=== PATIENT | female | born 1955 | race Caucasian/White ===

== ENCOUNTER 2018-02-08 07:59 | Emergency (ER) | payer OTHER ==
[~2018-02-08] VITALS: Ht 165.1 cm; Wt 101.0 kg
[~2018-02-08 07:59] MED LIST: TRAM50TA2 PO
[2018-02-08 08:02] VITALS: BP 150/95
[2018-02-09] MEDS ORDERED: HYDR-569 PO (08:37)
== END 2018-02-08 09:37 | disposition home or self-care (01) ==
LOC: ER 08:00
DX: S82.442A Displaced spiral fracture of shaft of left fibula, initial encounter for closed fracture (principal); X50.1XXA Overexertion from prolonged static or awkward postures, initial encounter; Y93.89 Activity, other specified; Y92.89 Other specified places as the place of occurrence of the external cause; Y99.8 Other external cause status
CPT/HCPCS: 73610; 99284

== ENCOUNTER 2018-02-18 10:22 | Outpatient (CLI) | payer OTHER ==
[~2018-02-18 10:22] MED LIST changes: +HYDR-569 PO
[2018-02-18 10:38] VITALS: BP 133/92
== END 2018-02-18 11:36 | disposition home or self-care (01) ==
LOC: ORTHO 10:22
PROVIDERS: ATTEND Nurse Practitioner Family
DX: Z01.818 Encounter for other preprocedural examination (principal); S82.831A Other fracture of upper and lower end of right fibula, initial encounter for closed fracture; E03.9 Hypothyroidism, unspecified; F32.9 Major depressive disorder, single episode, unspecified; G62.9 Polyneuropathy, unspecified; I10 Essential (primary) hypertension; K21.9 Gastro-esophageal reflux disease without esophagitis; M85.80 Other specified disorders of bone density and structure, unspecified site; X58.XXXA Exposure to other specified factors, initial encounter; Y93.89 Activity, other specified; Y92.89 Other specified places as the place of occurrence of the external cause; Y99.8 Other external cause status
CPT/HCPCS: 99215

== ENCOUNTER 2018-03-04 13:35 | Outpatient (CLI) | payer OTHER ==
[~2018-03-04 13:35] MED LIST changes: +ASPI-611 PO; +CARV6.253 PO; +CITA10TA9 PO; -HYDR-569 PO; +LEVO75TA7 PO; +PANT40TA4 PO; -TRAM50TA2 PO; +VALS160T29 PO
[2018-03-04 13:53] VITALS: BP 138/96
== END 2018-03-04 14:20 | disposition home or self-care (01) ==
LOC: ORTHO 13:35
PROVIDERS: ATTEND Nurse Practitioner Family
DX: S82.832D Other fracture of upper and lower end of left fibula, subsequent encounter for closed fracture with routine healing (principal); E03.9 Hypothyroidism, unspecified; F32.9 Major depressive disorder, single episode, unspecified; I10 Essential (primary) hypertension; K21.9 Gastro-esophageal reflux disease without esophagitis; X58.XXXD Exposure to other specified factors, subsequent encounter
CPT/HCPCS: 99213; A6449

== ENCOUNTER 2018-03-10 11:33 | Outpatient (CLI) | payer OTHER ==
[2018-03-10 11:58] VITALS: BP 121/79
== END 2018-03-10 12:20 | disposition home or self-care (01) ==
LOC: ORTHO 11:33
PROVIDERS: ATTEND Nurse Practitioner Family
DX: S82.832D Other fracture of upper and lower end of left fibula, subsequent encounter for closed fracture with routine healing (principal); E03.9 Hypothyroidism, unspecified; F32.9 Major depressive disorder, single episode, unspecified; I10 Essential (primary) hypertension; K21.9 Gastro-esophageal reflux disease without esophagitis; X58.XXXD Exposure to other specified factors, subsequent encounter
CPT/HCPCS: 99214; A6449

== ENCOUNTER 2018-03-19 09:36 | Outpatient (CLI) | payer OTHER | END 2018-03-19 23:59 | disposition home or self-care (01) | LOC: RAD 09:36 | PROVIDERS: ATTEND Physician Assistant | DX: R26.89 Other abnormalities of gait and mobility (principal); I10 Essential (primary) hypertension; Z87.891 Personal history of nicotine dependence | CPT/HCPCS: 70551 ==

== ENCOUNTER → 2018-04-16 | Outpatient (CLI) | payer OTHER | LOC: ORTHO 11:53 | PROVIDERS: ATTEND Nurse Practitioner Family | DX: S82.832D Other fracture of upper and lower end of left fibula, subsequent encounter for closed fracture with routine healing (principal); M77.32 Calcaneal spur, left foot; K21.9 Gastro-esophageal reflux disease without esophagitis; I10 Essential (primary) hypertension; E03.9 Hypothyroidism, unspecified; F32.9 Major depressive disorder, single episode, unspecified; Z87.891 Personal history of nicotine dependence; X58.XXXD Exposure to other specified factors, subsequent encounter | CPT/HCPCS: 73600; 99213 ==

== ENCOUNTER 2018-05-20 13:34 | Outpatient (CLI) | payer OTHER | END 2018-05-20 13:45 | disposition home or self-care (01) | LOC: ORTHO 13:34 | PROVIDERS: ATTEND Nurse Practitioner Family | DX: S82.832D Other fracture of upper and lower end of left fibula, subsequent encounter for closed fracture with routine healing (principal); M79.89 Other specified soft tissue disorders; M25.472 Effusion, left ankle; M85.872 Other specified disorders of bone density and structure, left ankle and foot; I10 Essential (primary) hypertension; K21.9 Gastro-esophageal reflux disease without esophagitis; E03.9 Hypothyroidism, unspecified; F32.9 Major depressive disorder, single episode, unspecified; Z87.891 Personal history of nicotine dependence; Z72.89 Other problems related to lifestyle; X58.XXXD Exposure to other specified factors, subsequent encounter | CPT/HCPCS: 73600; 99213 ==

== ENCOUNTER → 2018-06-04 | Outpatient (CLI) | payer OTHER ==
[~2018-06-04] MED LIST changes: -VALS160T29 PO; +VALS160T30 PO
[2018-06-04 11:42] LABS: BASOPHILS % (AUTO) 0.6 % (0-1); EOSINOPHILS # (AUTO) 0.2 X10'3 (0-0.9); EOSINOPHILS % (AUTO) 3.8 % (0-6); HEMOGLOBIN 15.2 g/dl (12.0-16.0); LYMPHOCYTES # (AUTO) 1.6 X10'3 (1.1-4.8); LYMPHOCYTES % (AUTO) 26.9 % (21-51); MEAN CORPUSCULAR HEMOGLOBIN 28.9 PG (27.0-31.0); MEAN CORPUSCULAR HGB CONC 33.8 % (33.0-36.5); MEAN CORPUSCULAR VOLUME 85.5 FL (78-98); MEAN PLATELET VOLUME 9.2 FL (7.4-10.4); MONOCYTES # (AUTO) 0.4 X10'3 (0-0.9); MONOCYTES % (AUTO) 6.1 % (2-12); NEUTROPHILS # (AUTO) 3.9 X10'3 (1.8-7.7); NEUTROPHILS % (AUTO) 62.6 % (42-75); PLATELET COUNT 250 X10'3 (140-440); RED BLOOD COUNT 5.27 X10'6 (4.20-5.60); RED CELL DISTRIBUTION WIDTH 12.1 % (11.5-14.5); WHITE BLOOD COUNT 6.1 X10'3 (4.5-11.0)
[2018-06-04 12:03] LABS: ALANINE AMINOTRANSFERASE 33 U/L (12-78); ALBUMIN 3.7 G/DL (3.4-5.0); ALBUMIN/GLOBULIN RATIO 1.2 (1.1-1.5); ALKALINE PHOSPHATASE 118 IU/L (46-116); ANION GAP 5 (8-16); ASPARTATE AMINO TRANSFERASE 16 U/L (10-37); BILIRUBIN,TOTAL 0.7 MG/DL (0.1-1.0); BLOOD UREA NITROGEN 12 MG/DL (7-18); BUN/CREATININE RATIO 12.5 (6.6-38.0); CALCIUM 8.8 MG/DL (8.5-10.1); CHLORIDE 105 MMOL/L (99-107); CHOL/HDL RATIO 4.4 (0.00-4.99); CHOLESTEROL 257 MG/DL (0-200); CREATININE 0.96 MG/DL (0.40-0.90); GLUCOSE 88 MG/DL (70-104); HDL CHOLESTEROL 58 MG/DL (35-60); LDL CHOLESTEROL 167 MG/DL (50-100); POTASSIUM 3.9 MMOL/L (3.5-5.1); SODIUM 138 MMOL/L (135-145); TOTAL CARBON DIOXIDE 28.3 MMOL/L (24-32); TOTAL PROTEIN 6.9 G/DL (6.4-8.2); TRIGLYCERIDES 144 MG/DL (20-135); eGFR 59 ML/MIN
[2018-06-04 15:26] LABS: C-REACTIVE PROTEIN 0.51 MG/DL (0.0-0.5)
== END | disposition home or self-care (01) ==
LOC: LAB 10:34
PROVIDERS: ATTEND Physician Assistant
DX: Z00.01 Encounter for general adult medical examination with abnormal findings (principal); Z13.820 Encounter for screening for osteoporosis; R26.89 Other abnormalities of gait and mobility; I10 Essential (primary) hypertension; E55.9 Vitamin D deficiency, unspecified; Z79.82 Long term (current) use of aspirin
CPT/HCPCS: 36415; 80053; 80061; 82043; 82306; 82570; 84443; 85025; 85651; 86140

== ENCOUNTER 2018-11-18 13:14 | Outpatient (CLI) | payer OTHER | END 2018-11-18 23:59 | disposition home or self-care (01) | LOC: CARD DIAG 13:14 | PROVIDERS: ATTEND Internal Medicine Cardiovascular Disease | DX: I10 Essential (primary) hypertension (principal); Z79.82 Long term (current) use of aspirin; Z87.891 Personal history of nicotine dependence | CPT/HCPCS: 93306 ==

== ENCOUNTER 2019-08-10 08:54 | Outpatient (CLI) | payer OTHER ==
[2019-08-10 11:55] LABS: BASOPHILS # (AUTO) 0.1 X10'3 (0-0.2); BASOPHILS % (AUTO) 0.9 % (0-1); EOSINOPHILS # (AUTO) 0.3 X10'3 (0-0.9); EOSINOPHILS % (AUTO) 4.9 % (0-6); HEMATOCRIT 44.7 % (35.0-45.0); HEMOGLOBIN 15.5 g/dl (12.0-16.0); LYMPHOCYTES # (AUTO) 1.8 X10'3 (1.1-4.8); LYMPHOCYTES % (AUTO) 27.2 % (21-51); MEAN CORPUSCULAR HGB CONC 34.8 g/dL (33.0-36.5); MEAN CORPUSCULAR VOLUME 86.2 FL (78-98); MEAN PLATELET VOLUME 8.9 FL (7.4-10.4); MONOCYTES # (AUTO) 0.5 X10'3 (0-0.9); PLATELET COUNT 291 X10'3 (140-440); RED BLOOD COUNT 5.19 X10'6 (4.20-5.60); WHITE BLOOD COUNT 6.8 X10'3 (4.5-11.0)
[2019-08-10 11:56] LABS: CLARITY,URINE SLIGHTLY CLOUDY (Clear); COLOR,URINE YELLOW (Yellow); GLUCOSE, URINE NEGATIVE (Neg); KETONES,URINE NEGATIVE (Neg); LEUKOCYTE ESTERASE ,URINE NEGATIVE (Neg); NITRITES, URINE NEGATIVE (Neg); OCCULT BLOOD,URINE NEGATIVE (Neg); PH,URINE 5.5 (4.8-8.0); PROTEIN,URINE NEGATIVE (Neg); UROBILINOGEN,URINE 0.2 E.U/dL (0.2-1.0)
[2019-08-10 12:04] LABS: UA COLLECTION TYPE CLN CATCH MIDSTREAM
[2019-08-10 12:05] LABS: BACTERIA,URINE FEW /HPF (Neg); RBC,URINE 0-2 /HPF (0-2); SQUAMOUS EPITHELIAL CELL,UR MODERATE /LPF (FEW); WBC,URINE 0-4 /HPF (0-4)
[2019-08-10 12:06] LABS: HYALINE CASTS 0-3 /LPF (NEGATIVE)
[2019-08-10 12:14] LABS: YEAST FEW /HPF (NEGATIVE)
[2019-08-10 12:25] LABS: ANION GAP 10 (8-16); BILIRUBIN,TOTAL 0.7 MG/DL (0.1-1.0); BLOOD UREA NITROGEN 12 MG/DL (7-18); BUN/CREATININE RATIO 16.4 (6.6-38.0); CALCIUM 9.2 MG/DL (8.5-10.1); CHLORIDE 106 MMOL/L (99-107); CREATININE 0.73 MG/DL (0.40-0.90); GLUCOSE 89 MG/DL (70-104); POTASSIUM 4.1 MMOL/L (3.5-5.1); SODIUM 143 MMOL/L (135-145); TOTAL CARBON DIOXIDE 27.4 MMOL/L (24-32); TOTAL PROTEIN 7.7 G/DL (6.4-8.2); eGFR 80 ML/MIN
[2019-08-10 12:26] LABS: ALANINE AMINOTRANSFERASE 36 U/L (12-78); ALBUMIN 3.8 G/DL (3.4-5.0); ALKALINE PHOSPHATASE 130 IU/L (46-116); ASPARTATE AMINO TRANSFERASE 16 U/L (10-37); CHOL/HDL RATIO 3.9 (0.00-4.99); CHOLESTEROL 252 MG/DL (0-200); HDL CHOLESTEROL 65 MG/DL (35-60); LDL CHOLESTEROL 167 MG/DL (50-100); TRIGLYCERIDES 91 MG/DL (20-135)
== END 2019-08-10 23:59 | disposition home or self-care (01) ==
LOC: LAB 08:54
PROVIDERS: ATTEND Family Medicine
DX: E03.9 Hypothyroidism, unspecified (principal); I10 Essential (primary) hypertension; M19.90 Unspecified osteoarthritis, unspecified site; Z76.89 Persons encountering health services in other specified circumstances
CPT/HCPCS: 36415; 80053; 80061; 81001; 84439; 84443; 85025; 87088

== ENCOUNTER 2019-09-20 06:59 | Day surgery (SDC) | payer OTHER ==
[~2019-09-20] VITALS: Ht 165.1 cm; Wt 95.5 kg
[2019-09-20 07:10] VITALS: BP 127/105
[2019-09-20] MEDS ORDERED: fentaNYL/PF 50MCG/1 ML 2ML syringe ONE (07:21)
[2019-09-20] MEDS ORDERED: MIDAZolam 5mg/5ml vial ONE (07:21)
[2019-09-20 09:20] VITALS: BP 108/73
[2019-09-20 09:30] VITALS: BP 114/70
[2019-09-20 09:40] VITALS: BP 111/68
[2019-09-20 09:50] VITALS: BP 121/73
== END 2019-09-20 10:05 | disposition home or self-care (01) ==
LOC: GI LAB 06:59
PROVIDERS: ATTEND Internal Medicine Gastroenterology
DX: Z12.11 Encounter for screening for malignant neoplasm of colon (principal); D12.3 Benign neoplasm of transverse colon; K62.1 Rectal polyp; K63.89 Other specified diseases of intestine; K57.30 Diverticulosis of large intestine without perforation or abscess without bleeding; K64.8 Other hemorrhoids
CPT/HCPCS: 45380; 45385; 99152; 99153; C1773; J2250; J3010; J7040; A4620

== ENCOUNTER 2019-10-07 11:08 | Emergency (ER) | payer OTHER ==
[~2019-10-07] VITALS: Ht 165.1 cm; Wt 100.0 kg
[2019-10-07 11:52] LABS: CLARITY,URINE SLIGHTLY CLOUDY (Clear); COLOR,URINE YELLOW (Yellow); GLUCOSE, URINE NEGATIVE (Neg); KETONES,URINE NEGATIVE (Neg); LEUKOCYTE ESTERASE ,URINE NEGATIVE (Neg); NITRITES, URINE NEGATIVE (Neg); OCCULT BLOOD,URINE NEGATIVE (Neg); PH,URINE 5.5 (4.8-8.0); PROTEIN,URINE NEGATIVE (Neg); UA COLLECTION TYPE CLN CATCH MIDSTREAM
[2019-10-07 11:55] LABS: BASOPHILS % (AUTO) 0.7 % (0-1); EOSINOPHILS # (AUTO) 0.1 X10'3 (0-0.9); EOSINOPHILS % (AUTO) 2.2 % (0-6); HEMATOCRIT 45.4 % (35.0-45.0); HEMOGLOBIN 15.5 g/dl (12.0-16.0); LYMPHOCYTES # (AUTO) 1.2 X10'3 (1.1-4.8); LYMPHOCYTES % (AUTO) 19.4 % (21-51); MEAN CORPUSCULAR HEMOGLOBIN 29.8 PG (27.0-31.0); MEAN CORPUSCULAR HGB CONC 34.2 g/dL (33.0-36.5); MEAN CORPUSCULAR VOLUME 87.3 FL (78-98); MEAN PLATELET VOLUME 8.9 FL (7.4-10.4); MONOCYTES # (AUTO) 0.6 X10'3 (0-0.9); NEUTROPHILS # (AUTO) 4.4 X10'3 (1.8-7.7); NEUTROPHILS % (AUTO) 68.7 % (42-75); PLATELET COUNT 257 X10'3 (140-440); RED CELL DISTRIBUTION WIDTH 13.4 % (11.5-14.5); WHITE BLOOD COUNT 6.3 X10'3 (4.5-11.0)
[2019-10-07 11:57] LABS: MUCUS STRANDS MANY /LPF (Neg); SQUAMOUS EPITHELIAL CELL,UR MANY /LPF (FEW)
[2019-10-07 11:58] LABS: BACTERIA,URINE 1+ /HPF (Neg)
[2019-10-07 11:59] LABS: RBC,URINE 0-2 /HPF (0-2); WBC,URINE 0-4 /HPF (0-4)
[2019-10-07 12:12] LABS: ALANINE AMINOTRANSFERASE 432 U/L (12-78); ALBUMIN 3.7 G/DL (3.4-5.0); ALKALINE PHOSPHATASE 264 IU/L (46-116); ANION GAP 9 (8-16); ASPARTATE AMINO TRANSFERASE 447 U/L (10-37); BILIRUBIN,TOTAL 1.4 MG/DL (0.1-1.0); BLOOD UREA NITROGEN 11 MG/DL (7-18); BUN/CREATININE RATIO 13.6 (6.6-38.0); CALCIUM 9.2 MG/DL (8.5-10.1); CHLORIDE 107 MMOL/L (99-107); CREATININE 0.81 MG/DL (0.40-0.90); GLUCOSE 109 MG/DL (70-104); LIPASE 92 U/L (73-393); POTASSIUM 4.2 MMOL/L (3.5-5.1); SODIUM 140 MMOL/L (135-145); TOTAL CARBON DIOXIDE 24.1 MMOL/L (24-32); TOTAL PROTEIN 7.3 G/DL (6.4-8.2); eGFR 71 ML/MIN
[2019-10-07 13:57] VITALS: BP 130/83
== END 2019-10-07 14:42 | disposition home or self-care (01) ==
LOC: ER 11:09
DX: K80.20 Calculus of gallbladder without cholecystitis without obstruction (principal); I10 Essential (primary) hypertension; K21.9 Gastro-esophageal reflux disease without esophagitis; E03.9 Hypothyroidism, unspecified; M19.90 Unspecified osteoarthritis, unspecified site; F32.9 Major depressive disorder, single episode, unspecified; Z98.890 Other specified postprocedural states; Z79.82 Long term (current) use of aspirin; Z79.899 Other long term (current) drug therapy
CPT/HCPCS: 36415; 76700; 80053; 81001; 83690; 84484; 85025; 93005; 99284

== ENCOUNTER 2020-01-17 05:31 | Observation (INO) | payer OTHER ==
[2020-01-13 13:36] LABS: BASOPHILS # (AUTO) 0.1 X10'3 (0-0.2); BASOPHILS % (AUTO) 0.8 % (0-1); EOSINOPHILS # (AUTO) 0.4 X10'3 (0-0.9); EOSINOPHILS % (AUTO) 5.1 % (0-6); LYMPHOCYTES # (AUTO) 1.8 X10'3 (1.1-4.8); LYMPHOCYTES % (AUTO) 24.7 % (21-51); MEAN CORPUSCULAR HGB CONC 34.4 g/dL (33.0-36.5); MEAN CORPUSCULAR VOLUME 84.3 FL (78-98); MEAN PLATELET VOLUME 7.7 FL (7.4-10.4); MONOCYTES # (AUTO) 0.7 X10'3 (0-0.9); MONOCYTES % (AUTO) 9.1 % (2-12); NEUTROPHILS # (AUTO) 4.5 X10'3 (1.8-7.7); NEUTROPHILS % (AUTO) 60.3 % (42-75); PRE OP HEMATOCRIT 44.5 % (35.0-45.0); PRE OP HEMOGLOBIN 15.3 g/dL (12.0-16.0); PRE OP PLATELET COUNT 323 X10'3 (140-440); RED BLOOD COUNT 5.28 X10'6 (4.20-5.60); RED CELL DISTRIBUTION WIDTH 12.7 % (11.5-14.5)
[2020-01-13 13:52] LABS: ALBUMIN 3.8 G/DL (3.4-5.0); ALBUMIN/GLOBULIN RATIO 1.1 (1.1-1.5); ALKALINE PHOSPHATASE 142 IU/L (46-116); BLOOD UREA NITROGEN 15 MG/DL (7-18); BUN/CREATININE RATIO 20.5 (6.6-38.0); CALCIUM 9.1 MG/DL (8.5-10.1); CHLORIDE 105 MMOL/L (99-107); CREATININE 0.73 MG/DL (0.40-0.90); PRE OP ALT 53 U/L (30-65); PRE OP ANION GAP 8 (8-16); PRE OP AST 22 U/L (10-37); PRE OP BILIRUB, TOTAL 0.7 MG/DL (0.0-1.0); PRE OP GLUCOSE 82 MG/DL (70-104); PRE OP SODIUM 141 MMOL/L (135-145); TOTAL CARBON DIOXIDE 28.1 MMOL/L (24-32); TOTAL PROTEIN 7.4 G/DL (6.4-8.2); eGFR 80 ML/MIN
[~2020-01-17] VITALS: Ht 165.1 cm; Wt 99.0 kg
[2020-01-17] VITALS (21 sets, daily range): BP systolic 112–160; BP diastolic 55–101
[~2020-01-17 05:31] MED LIST changes: +DOCUMENT DATE & TIME OF BETA-BLOCKER PO ONE; +INDOCYANINE GREEN 25 MG/10 ML VIAL IV ONE; -VALS160T30 PO; +cefazolin/dext.iso 2gm/100ml 100 ML IV ONE; +famotidine 20mg tablet PO ONE
[2020-01-17] MEDS: ringers solution, lacted 1,000 ML IV SCH ×2 (06:06→11:34)
[2020-01-17] MEDS ORDERED: BUPIVACAINE liposomal/PF 13.3 MG/ML vial IM ONE (06:55)
[2020-01-17] MEDS ORDERED: ROPIVAcaine 0.5% (5mg/ml) 30ml vial ONE (06:55)
[2020-01-17] MEDS ORDERED: ringers solution, lacted 1,000 ML IV SCH (07:17)
[2020-01-17] MEDS ORDERED: labetalol 20mg/4ml (5mg/ml) syringe IV PRN (07:20)
[2020-01-17] MEDS ORDERED: morphine 4 MG/ML inj SYRINge IV PRN (07:20)
[2020-01-17] MEDS ORDERED: hydrALAZINE 20mg/ml inj. IV PRN (07:20)
[2020-01-17] MEDS ORDERED: morphine 2 MG/ML inj. syringe IV PRN (07:20)
[2020-01-17] MEDS ORDERED: fentaNYL/PF 50MCG/1 ML 2ML syringe IV PRN ×2 (07:20)
[2020-01-17] MEDS ORDERED: ondansetron/PF 4mg/2ml inj IV PRN ×2 (07:20→09:30)
[2020-01-17] MEDS ORDERED: midazolam 2 mg/2 ml injection ONE (07:25)
[2020-01-17] MEDS ORDERED: fentaNYL /PF 50mcg/ml 5ml ampule ONE (07:26)
[2020-01-17] MEDS ORDERED: neostigmine methylsulfate 1 MG/ML 10ml vial ONE (07:28)
[2020-01-17] MEDS ORDERED: ondansetron/PF 4mg/2ml inj ONE (07:28)
[2020-01-17] MEDS ORDERED: LIDOcaine 2% (20mg/ml) 5ml vial ONE (07:28)
[2020-01-17] MEDS ORDERED: glycopyrrolate 0.2mg/ml inj ONE (07:28)
[2020-01-17] MEDS ORDERED: propofol inj 20 ML IV ONE (07:28)
[2020-01-17] MEDS ORDERED: rocuronium 10mg/ml inj IV ONE (07:28)
[2020-01-17] MEDS ORDERED: dexamethasone sod phosphate 4mg/ml inj. ONE (07:28)
[2020-01-17] MEDS ORDERED: sevoflurane 250ml liquid IH ONE (07:39)
[2020-01-17] MEDS ORDERED: labetalol 20mg/4ml (5mg/ml) syringe IV ONE (07:39)
[2020-01-17] MEDS ORDERED: acetaminophen 1,000mg/100ml IV 100 ML IV ONE (07:53)
--- NOTE | 2020-01-17 09:29 | NUR ---
Received from OR via BED, accompanied by Anesthesiologist DR MUSA and report given by Anesthesiolgist. AWAKENING, VSS. DENIES PAIN OR NAUSEA. RUQ ABD ISLAND DSG CDI. ABD SOFT/NONDISTENDED. IV PATNET LEFT FA #20 LR @ 100MLS/HR. F/C INPLACE WITH CLEAR YELLOW URINE RETURN 50 MLS PRESENT. SCD'S BILAT APPLIED.
[2020-01-17] MEDS ORDERED: Potassium Cl inj 20 MEQ in ringers solution, lacted 1,000 ML IV SCH (09:30)
[2020-01-17] MEDS ORDERED: oxyCODONE/APAP 10/325mg tablet PO PRN ×2 (09:30)
--- NOTE | 2020-01-17 10:40 | NUR ---
FC DC'D WITH BALLON DEFLATED AND TIP INTACT
--- NOTE | 2020-01-17 10:41 | NUR ---
Received patient report from Tierra FERRIS in Recovery she will pull patients hardin before coming to the floor. Will assume patient care when she comes to the floor.
--- NOTE | 2020-01-17 10:49 | NUR ---
AWAKE. VSS. DENIES PAIN OR NAUSEA. ABD SOFT/NONDISTENDED. ABD DSG CDI. IV LEFT FA #20 PATENT[address] SCD'S INPLACE. REPORT GIVEN TO AFIA FERRIS WITH ALL QUESTIONS ANSWERED. [facility] AND CLOTHES PRESENT. AFIA IN TO RECEIVE PT, HOOKED UP TO VS MACHINE, AND O2 3L PER NC APPLIED. Addendum: 01/17/20 at 1113 by Tierra Mar RN Amended: Links added.
[2020-01-17] MEDS: Potassium Cl inj 20 MEQ in ringers solution, lacted 1,000 ML IV SCH ×3 (11:33→18:32)
[2020-01-17] MEDS ORDERED: traMADol 50MG tablet PO PRN (13:00)
[2020-01-17] MEDS: traMADol 50MG tablet PO PRN ×3 (13:42→19:58)
--- NOTE | 2020-01-17 18:30 | NUR ---
Patient in room [facility]. I have received report from BARRINGTON Cedillo and had the opportunity to ask questions and assume patient care. Addendum: 01/17/20 at 1927 by Walker Trevino RN Amended: Links added.
--- NOTE | 2020-01-17 18:31 | NUR ---
Problems reprioritized. Patient report given, questions answered & plan of care reviewed with Yenni FERRIS.
[2020-01-17] MEDS: carvedilol 6.25mg tablet PO SCH (19:55)
[2020-01-18] VITALS: BP 115/68
[2020-01-18 05:03] LABS: BASOPHILS % (AUTO) 0.1 % (0-1); EOSINOPHILS % (AUTO) 0 % (0-6); HEMATOCRIT 39.3 % (35.0-45.0); HEMOGLOBIN 13.5 g/dl (12.0-16.0); LYMPHOCYTES # (AUTO) 0.7 X10'3 (1.1-4.8); MEAN CORPUSCULAR HEMOGLOBIN 28.9 PG (27.0-31.0); MEAN CORPUSCULAR HGB CONC 34.5 g/dL (33.0-36.5); MEAN CORPUSCULAR VOLUME 83.8 FL (78-98); MEAN PLATELET VOLUME 8.6 FL (7.4-10.4); MONOCYTES # (AUTO) 0.8 X10'3 (0-0.9); MONOCYTES % (AUTO) 6.4 % (2-12); NEUTROPHILS # (AUTO) 10.8 X10'3 (1.8-7.7); NEUTROPHILS % (AUTO) 87.5 % (42-75); PLATELET COUNT 257 X10'3 (140-440); RED BLOOD COUNT 4.69 X10'6 (4.20-5.60); RED CELL DISTRIBUTION WIDTH 12.4 % (11.5-14.5); WHITE BLOOD COUNT 12.3 X10'3 (4.5-11.0)
[2020-01-18 05:27] LABS: ALANINE AMINOTRANSFERASE 48 U/L (12-78); ALBUMIN/GLOBULIN RATIO 0.9 (1.1-1.5); ALKALINE PHOSPHATASE 110 IU/L (46-116); ANION GAP 9 (8-16); ASPARTATE AMINO TRANSFERASE 28 U/L (10-37); BLOOD UREA NITROGEN 9 MG/DL (7-18); BUN/CREATININE RATIO 15.5 (6.6-38.0); CALCIUM 8.9 MG/DL (8.5-10.1); CHLORIDE 109 MMOL/L (99-107); CREATININE 0.58 MG/DL (0.40-0.90); GLUCOSE 126 MG/DL (70-104); SODIUM 142 MMOL/L (135-145); TOTAL CARBON DIOXIDE 24.4 MMOL/L (24-32); TOTAL PROTEIN 6.3 G/DL (6.4-8.2); eGFR > 90 ML/MIN
--- NOTE | 2020-01-18 06:29 | NUR ---
Patient in room [facility]. I have received report from Yenni FERRIS and had the opportunity to ask questions and assume patient care.
--- NOTE | 2020-01-18 06:52 | NUR ---
Problems reprioritized. Patient report given, questions answered & plan of care reviewed with BARRINGTON Cedillo. Addendum: 01/18/20 at 0653 by Walker Trevino RN Amended: Links added.
[2020-01-18] MEDS: carvedilol 6.25mg tablet PO SCH (06:56)
[2020-01-18 07:00] VITALS: BP 137/63
[2020-01-18] MEDS ORDERED: levoTHYROXINE 75mcg tablet PO SCH (07:30)
[2020-01-18] MEDS ORDERED: pantoprazole 40mg Tablet.DR PO SCH (07:30)
[2020-01-18] MEDS ORDERED: CITALOpram 10mg tablet PO SCH (08:00)
[2020-01-18] MEDS: traMADol 50MG tablet PO PRN ×2 (08:12→12:31)
[2020-01-18 11:00] VITALS: BP 129/69
[2020-01-18] MEDS: Potassium Cl inj 20 MEQ in ringers solution, lacted 1,000 ML IV SCH (11:30)
[2020-01-18] MEDS ORDERED: TRAM50TA2 PO (12:09)
--- NOTE | 2020-01-18 12:30 | NUR ---
Discharge instructions reviewed with patient and patient verbalized understanding. Patient IV dc'd cannula intact. Patient states she has all her belongings. Patient taken to lobby to wait for her ride to arrive due to we have a no visitor policy at this time.
== END 2020-01-18 12:35 | disposition home or self-care (01) ==
LOC: PAS 05:31 → SUR 3N 09:30
PROVIDERS: ADMIT Surgery; ATTEND Surgery
DX: K80.66 Calculus of gallbladder and bile duct with acute and chronic cholecystitis without obstruction (principal)
CPT/HCPCS: 36415; 47600; 80053; 82948; 85025; C9290; G0378; J0131; J1100; J2001; J2250; J2405; J2704; J2710; J3010; J3480; J7120; A4215; A4618; A6258; A7000; J2795; J3490

== ENCOUNTER 2021-07-06 09:39 | Emergency (ER) | payer BC, OTHER ==
[~2021-07-06] VITALS: Ht 158.2 cm; Wt 200.0 kg
[~2021-07-06 09:39] MED LIST changes: -DOCUMENT DATE & TIME OF BETA-BLOCKER PO ONE; -INDOCYANINE GREEN 25 MG/10 ML VIAL IV ONE; -PANT40TA4 PO; +PANT40TA54 PO; +TRAM50TA2 PO; -cefazolin/dext.iso 2gm/100ml 100 ML IV ONE; -famotidine 20mg tablet PO ONE
[2021-07-06 10:09] VITALS: BP 127/55
== END 2021-07-06 11:16 | disposition home or self-care (01) ==
LOC: ER 09:40
DX: B34.9 Viral infection, unspecified (principal); Z20.822 Contact with and (suspected) exposure to COVID-19; I10 Essential (primary) hypertension; K21.9 Gastro-esophageal reflux disease without esophagitis; E03.9 Hypothyroidism, unspecified; Z87.81 Personal history of (healed) traumatic fracture; Z79.82 Long term (current) use of aspirin; Z79.899 Other long term (current) drug therapy; Z72.89 Other problems related to lifestyle; Z98.890 Other specified postprocedural states
CPT/HCPCS: 87635; 99283; C9803

== ENCOUNTER 2021-12-27 07:50 | Outpatient (CLI) | payer BC ==
[~2021-12-27 07:50] MED LIST changes: -CITA10TA9 PO; +CITA10TA93 PO
[2021-12-27 08:33] LABS: BASOPHILS % (AUTO) 0.6 % (0-1); EOSINOPHILS # (AUTO) 0.2 X10'3 (0-0.9); EOSINOPHILS % (AUTO) 3.4 % (0-6); HEMATOCRIT 44.4 % (35.0-45.0); HEMOGLOBIN 15.2 g/dl (12.0-16.0); LYMPHOCYTES # (AUTO) 1.3 X10'3 (1.1-4.8); LYMPHOCYTES % (AUTO) 20.9 % (21-51); MEAN CORPUSCULAR HEMOGLOBIN 29.7 PG (27.0-31.0); MEAN CORPUSCULAR HGB CONC 34.1 g/dL (33.0-36.5); MEAN CORPUSCULAR VOLUME 87.2 FL (78-98); MEAN PLATELET VOLUME 8.7 FL (7.4-10.4); MONOCYTES # (AUTO) 0.5 X10'3 (0-0.9); MONOCYTES % (AUTO) 7.8 % (2-12); NEUTROPHILS # (AUTO) 4.2 X10'3 (1.8-7.7); NEUTROPHILS % (AUTO) 67.3 % (42-75); PLATELET COUNT 261 X10'3 (140-440); WHITE BLOOD COUNT 6.3 X10'3 (4.5-11.0)
[2021-12-27 10:12] LABS: ALANINE AMINOTRANSFERASE 38 U/L (12-78); ALBUMIN 3.8 G/DL (3.4-5.0); ALBUMIN/GLOBULIN RATIO 1.1 (1.1-1.5); ALKALINE PHOSPHATASE 140 IU/L (46-116); ASPARTATE AMINO TRANSFERASE 17 U/L (10-37); BILIRUBIN,TOTAL 0.7 MG/DL (0.1-1.0); BLOOD UREA NITROGEN 14 MG/DL (7-18); BUN/CREATININE RATIO 18.4 (6.6-38.0); CALCIUM 9.1 MG/DL (8.5-10.1); CHLORIDE 108 MMOL/L (99-107); CHOL/HDL RATIO 3.7 (0.00-4.99); CHOLESTEROL 253 MG/DL (0-200); CREATININE 0.76 MG/DL (0.40-0.90); GLUCOSE 92 MG/DL (70-104); HDL CHOLESTEROL 68 MG/DL (35-60); LDL CHOLESTEROL 171 MG/DL (50-100); TOTAL PROTEIN 7.2 G/DL (6.4-8.2); TRIGLYCERIDES 82 MG/DL (20-135); eGFR 76 ML/MIN
[2021-12-27 10:17] LABS: ANION GAP 8 (8-16); POTASSIUM 4.3 MMOL/L (3.5-5.1); SODIUM 141 MMOL/L (135-145); TOTAL CARBON DIOXIDE 25.5 MMOL/L (24-32)
[2021-12-28 15:46] LABS: ESTRADIOL 31.4 pg/mL (.); PROGESTERONE 0.1 ng/mL (.)
[2021-12-31 11:08] LABS: TESTOSTERONE, FREE, DIRECT 2.8 pg/mL (0.0-4.2)
== END 2021-12-27 23:59 | disposition home or self-care (01) ==
LOC: LAB 07:50
PROVIDERS: ATTEND Family Medicine
DX: Z00.01 Encounter for general adult medical examination with abnormal findings (principal); E03.9 Hypothyroidism, unspecified; E55.9 Vitamin D deficiency, unspecified
CPT/HCPCS: 36415; 80053; 80061; 82306; 82670; 84144; 84402; 84403; 84439; 84443; 85025

== ENCOUNTER 2025-09-11 08:08 | Emergency (ER) | payer BC ==
[~2025-09-11] VITALS: Ht 162.6 cm; Wt 95.4 kg
[~2025-09-11 08:08] MED LIST changes: -ASPI-611 PO; -LEVO75TA7 PO; -TRAM50TA2 PO
[2025-09-11 08:09] VITALS: TEMP 98.7
--- NOTE | 2025-09-11 08:31 | Physician Documentation ---
History of Present Illness ~ Chief Complaint: Flu Symptoms Stated Complaint: N/V FEVER Time Seen by MD: 08:27 OK to notify your PCP?: Yes Primary Medical Doctor: Srinivasan Hays VIDEOTAPE RECORDING ENGINEER Source: patient Mode of Arrival: POV Exam Limitations: no limitations HPI A 70-year-old pleasant female with past medical history of hypertension presented to the ER with fever, vomiting for the past 3 days. She stated that she was doing apparently normal until Thursday but on Thursday afternoon she felt UTI symptoms of increased frequency and little bit of abdominal discomfort. She reported that she is feeling body aches, leg cramps, generalized weakness from Thursday night. She endorses fever with chills on Thursday but subsided now. She is complaining of nausea with vomiting, bilious in nature, aggravated even with small amount of fluids. She could not able to take sips of water she is feeling better taste. She stated that blood pressures are well within control with carvedilol but it shooted up to 200 she is not able to take carvedilol from Thursday. She denied cough, cold, sore throat, chest pain, shortness of breath, pedal edema, abdominal distention, heartburn, indigestion, dyspepsia, acid r eflux, weakness of limbs, slurring of speech, deviation of angle of mouth, palpitations, seizures. Medication Reconciliation Allergies: Coded Allergies: No Known Allergies (Unverified , 07/06/21) Scheduled Carvedilol (Carvedilol), 1 TAB PO BID, (Reported) Cefpodoxime Proxetil (Cefpodoxime Proxetil), 1 TAB PO Q12H Citalopram Hydrobromide (Citalopram HBr), 2 TAB PO DAILY, (Reported) Pantoprazole Sodium (Pantoprazole Sodium), 1 TAB PO BKF, (Reported) Scheduled PRN ONDANSETRON ODT 4mg tablet (Ondansetron Odt), 1 TAB PO Q6H PRN PRN for nausea/vomiting Past Medical History Past Medical History: Peripheral Neuropathy, Hypertension, GERD, Hypot hyroidism, Arthritis, Extremity Fracture, Osteopenia, Depression Past Surgical History: cholecystectomy, orthopedic surgeries Alcohol Use: Occasionally Drug Use: none Lives with: Spouse Lives In: Home Occupation: employed Review of Systems All Other Systems at this time: Reviewed and Negative ROS Reviewed in full and negative except positive pertinent as in HPI Physical Exam Vital Signs: Temperature: 98.7, Source: Oral, Heart Rate: 52, Respiratory Rate: 16, BP: 204/165, Pulse Oximetry: 98, Weight: 95.400 Oxygen Flow Rate: 0 General Appearance: alert, no apparent distress, ill-appearing, obese Eyes: normal inspection, EOMI, PERRL Ears: auricle normal, canal normal, TMs normal Nose: normal inspection Oropharynx: normal inspection, dry muscous membranes Neck: non-tender, full range of motion, supple, normal inspection, trachea midline Respiratory: lungs clear, normal breath sounds, no respiratory distress Chest: no accessory muscle use, chest non-tender Cardiovascular: normal peripheral pulses, regular rate, rhythm, no edema, no gallop, no JVD, no murmur Gastrointestinal: normal palpation, non-tender, bowels sounds present Rectal: deferred Extremities: normal range of motion, non-tender, normal inspection, no edema, no calf tenderness, no cyanosis Back: normal inspection, no CVA tenderness Skin: normal color, warm/dry Neurologic: oriented x4, 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 (Apresoline Inj.) (09/11/25 08:35) Ondansetron Inj. (Zofran 4mg/2ml Vial) (09/11/25 09:05) Add On Test (09/11/25 09:05) Ceftriaxone 2gm/D5w 50ml Bag (Rocephin 2 (09/11/25 09:50) LA (09/11/25 09:57) Medications Received in ER Medications (Trade) Dose Ordered Sig/Romulo Route PRN Reason Start Time Stop Time Status Last Admin Dose Admin (Apresoline inj.) 10 mg ONCE ONCE IV 09/11/25 08:35 09/11/25 08:40 DC 09/11/25 10:35 10 MG (Zofran 4mg/2ml vial) 4 mg ONCE ONCE IV 09/11/25 09:05 09/11/25 09:10 DC 09/11/25 09:20 4 MG Sodium Chloride 1,000 ml @ 150 mls/hr Q6H40M IV 09/11/25 09:05 09/11/25 09:20 150 MLS/HR Ceftriaxone Sodium/Dextrose 50 ml @ 100 mls/hr ONCE ONCE IV 09/11/25 09:50 09/11/25 10:19 DC 09/11/25 09:57 100 MLS/HR Vital Signs 09/11/25 09/11/25 09/11/25 09/11/25 08:09 08:47 08:49 09:39 Temp 98.7 Pulse 52 88 85 Resp 16 16 16 16 B/P (MAP) 204/165 167/75 (105) 155/95 (115) Pulse Ox 98 95 98 O2 Flow Rate 0 0 0 09/11/25 10:35 Pulse 85 Laboratory Tests Test 09/11/25 08:15 09/11/25 08:33 09/11/25 08:42 09/11/25 10:05 Urine Specimen Description Cln catch midstream Urine Color Yellow Urine Clarity Cloudy Urine pH 6.0 Urine Specific [place] 1.010 Urine Protein 100 H Urine Glucose (UA) Negative Urine Ketones Trace H Urine Occult Blood Moderate H Urine Nitrite Positive H Urine Bilirubin Negative Urine Urobilinogen 1.0 Urine Leukocyte Esterase Moderate H Urine RBC 3-10 Urine WBC Tntc H Urine Squamous Epithelial Cells Few Urine Bacteria 4+ Urine Culture Indicated Indicated Volume Urine Centrifuged 10 ml Urine Comment Influenza Type A Antigen Negative Influenza Type B Antigen Negative SARS-CoV-2 Antigen (Rapid) Negative White Blood Count 11.6 H Red Blood Count 4.94 Hemoglobin 14.9 Hematocrit 43.6 Mean Corpuscular Volume 88.3 Mean Corpuscular Hemoglobin 30.2 Mean Corpuscular Hemoglobin Concent 34.2 Red Cell Distribution Width 13.5 Platelet Count 227 Mean Platelet Volume 8.9 Neutrophils (%) (Auto) 81.6 H Lymphocytes (%) (Auto) 6.5 L Monocytes (%) (Auto) 11.4 Eosinophils (%) (Auto) 0.1 Basophils (%) (Auto) 0.4 Neutrophils # (Auto) 9.4 H Lymphocytes # (Auto) 0.8 L Monocytes # (Auto) 1.3 H Eosinophils # (Auto) 0.0 Basophils # (Auto) 0.1 CBC Comment Sodium Level 137 Potassium Level 3.0 *L Chloride Level 103 Carbon Dioxide Level 21.5 L Anion Gap 13 Blood Urea Nitrogen 12 Creatinine 0.78 Estimated GFR/1.73 m2 73 BUN/Creatinine Ratio 15.4 15.0 Glucose Level 121 H Calcium Level 9.0 Total Bilirubin 1.0 Aspartate Amino Transf (AST/SGOT) 54 H Alanine Aminotransferase (ALT/SGPT) 79 H Alkaline Phosphatase 137 H Total Protein 7.9 Albumin 3.3 L Globulin 4.6 H Albumin/Globulin Ratio 0.7 L Lipase 17 Procalcitonin 0.29 Chemistry Comments Bedside Hemoglobin 14.6 Bedside Hematocrit 43 Bedside Sodium 139 Bedside Potassium 3.0 *L Bedside Chloride 106 Bedside Total CO2 19 L Bedside Anion Gap 14 H Bedside Blood Urea Nitrogen 12 Bedside Creatinine 0.8 Bedside Estimated GFR (eGFR) 71 Bedside Glucose 117 H Bedside Ionized Calcium (Adams) 1.15 Lactic Acid Level 0.9 Microbiology Date/Time Source Procedure Growth Status 09/11/25 09:49 Urine Clean Catch Midstream Urine Culture - Preliminary Culture received. Resulted Medical Decision Making Additional information obtaine: old records Findings UTI WBC counts were elevated with preponderance to neutrophilia. Procalcitonin lactic acid is normal. Patient is in dehydration and we are giving IV normal saline at the rate of 150 mL/hours and we ordered ceftriaxone 2 g stat for UTI and the plan is to send her home with a cefpodoxime p.o. b.i.d. for 7 days along with Zofran 4 mg p.r.n. Nausea and vomiting is treated with Zofran 4 mg IV 1 dose. Hypokalemia Potassium is 3 On IV normal saline at the rate of 200 mL/hour Uncontrolled hypertension Blood pressure is initially in 200s but later settled down without any medications to 150s and again went up to more than 170s and we gave hydralazine 10 mg IV 1 dose recommended to take daily dose of carvedilol. Differential Dx:Considerations: Include: Dehydration, Pyelonephritis, UTI Departure Disposition: 01 HOME / SELF CARE / HOMELESS Impression: Primary Impression: UTI (urinary tract infection) Additional Impressions: Dehydration Hypokalemia Uncontrolled hypertension Condition: Stable Discharge Instructions: Dehydration, Elderly, Urinary Tract Infection, Adult Additional Instructions: Recommended to take adequate oral fluid. Continue cefpodoxime 100 mg p.o. b.i.d. for 1 week Referrals: NO PRIMARY CARE PROVIDER (PCP) Prescriptions ONDANSETRON ODT 4mg tablet (ONDANSETRON ODT) 4 Mg Tab.rapdis 1 TAB PO Q6H PRN PRN for nausea/vomiting for 4 Days, #16 TAB 0 Refills Prov: GM SAMUELS, MYLES 09/11/25 Cefpodoxime Proxetil (Cefpodoxime Proxetil) 100 Mg Tablet 1 TAB PO Q12H for 7 Days, #14 TAB 0 Refills Prov: GM SAMUELS, MYLES 09/11/25 Education Educated: Patient, Family Educated regarding: diagnosis, treatment, prognosis Signature Scribe Signature: The note accurately reflects work and decisions made by me.Gm Samuels - Resident 09/11/25 11:34 Attestation: The note accurately reflects work and decisions made by me.Gm Samuels - Resident 09/11/25 11:34 GM SAMUELS, RES Sep 11, 2025 08:31
[2025-09-11 08:42] LABS: INFLUENZA TYPE A ANTIGEN RAPID NEGATIVE (Negative); INFLUENZA TYPE B ANTIGEN RAPID NEGATIVE (Negative)
[2025-09-11 08:44] LABS: MEAN PLATELET VOLUME 8.9 FL (7.4-10.4); RED CELL DISTRIBUTION WIDTH 13.5 % (11.5-14.5)
[2025-09-11 08:48] LABS: ISTAT ANION GAP 14.0 (8-12); ISTAT BUN 12.0 mg/dL (7-18); ISTAT CL 106.0 mmol/L (99-107); ISTAT CREATININE 0.8 mg/dL (0.6-1.1); ISTAT GLUCOSE 117.0 mg/dL (70-104); ISTAT HGB 14.6 g/dl (12.0-16.0); ISTAT Hct 43.0 %PCV (35-45); ISTAT IONIZED CALCIUM 1.15 mmol/L (1.03-1.32); ISTAT NA 139.0 mmol/L (135-145); ISTAT TOTAL CO2 19.0 mmol/L (24-32); ISTAT eGFR 71.0 ML/MIN; POC BUN/CREATININE RATIO 15.0 (6.6-38.0)
--- NOTE | 2025-09-11 08:59 | RADIOLOGY REPORT ---
CHEST RADIOGRAPH Indication: pneumonia Technique: Single frontal view of the chest was obtained COMPARISON: None FINDINGS: Lines and Tubes: None Lungs: Increased interstitial prominence. This may represent pulmonary vascular congestion and/or viral pneumonia. Pleura: No effusion.No pneumothorax. Cardiomediastinal contours: Cardiomegaly. Bones: Unremarkable IMPRESSION: Increased interstitial prominence. This may represent pulmonary vascular congestion and/or viral pneumonia.
[2025-09-11 09:17] LABS: CREATININE 0.78 MG/DL (0.40-0.90); TOTAL CARBON DIOXIDE 21.5 MMOL/L (24-32); eCRCL 58 ML/MIN; eGFR 73 ML/MIN
[2025-09-11] MEDS: ondansetron/PF 4mg/2ml inj IV ONE (09:20)
[2025-09-11] MEDS: normal saline 1000ml 1,000 ML IV SCH (09:20)
[2025-09-11] MEDS: hydrALAZINE 20mg/ml inj. IV ONE (09:26)
[2025-09-11 09:29] LABS: LEUKOCYTE ESTERASE ,URINE MODERATE (Neg); NITRITES, URINE POSITIVE (Neg); OCCULT BLOOD,URINE MODERATE (Neg)
[2025-09-11 09:31] LABS: UA COLLECTION TYPE CLN CATCH MIDSTREAM
[2025-09-11 09:34] LABS: ISTAT K 3.0 mmol/L (3.5-5.1)
[2025-09-11 09:35] LABS: ISTAT K CONFIRMATION 3.0 mmol/L
[2025-09-11 09:48] LABS: SQUAMOUS EPITHELIAL CELL,UR FEW /LPF (FEW)
[2025-09-11] MEDS: CefTRIAXone 2gm/D5W 50ml BAG 50 ML IV ONE (09:57)
[2025-09-11] MEDS ORDERED: CEFP100T7 PO (10:11)
[2025-09-11] MEDS ORDERED: ONDA-243 PO (10:14)
[2025-09-11 12:01] VITALS: BP 176/90; PULSE 86; RESP 16; O2SAT 95
== END 2025-09-11 12:02 | disposition home or self-care (01) ==
LOC: ER 08:09
DX: N39.0 Urinary tract infection, site not specified (principal); E86.0 Dehydration; E87.6 Hypokalemia; I10 Essential (primary) hypertension; E03.9 Hypothyroidism, unspecified; F32.A Depression, unspecified; K21.9 Gastro-esophageal reflux disease without esophagitis; Z90.49 Acquired absence of other specified parts of digestive tract; Z20.822 Contact with and (suspected) exposure to COVID-19
CPT/HCPCS: 36415; 71045; 80047; 80053; 81001; 83605; 83690; 84145; 85025; 87088; 87804; 87811; 96361; 96365; 96375; 99284; J0360; J0696; J2405; J7030; 87077; 87186

== ENCOUNTER 2025-09-14 10:27 | Outpatient (CLI) | payer BC ==
[~2025-09-14 10:27] MED LIST changes: +CEFP100T7 PO; +ONDA-243 PO
[2025-09-14 11:21] LABS: MEAN PLATELET VOLUME 8.6 FL (7.4-10.4); RED CELL DISTRIBUTION WIDTH 13.6 % (11.5-14.5)
[2025-09-14 11:46] LABS: CREATININE 0.67 MG/DL (0.40-0.90); TOTAL CARBON DIOXIDE 28.7 MMOL/L (24-32); eGFR 87 ML/MIN
== END 2025-09-14 23:59 | disposition home or self-care (01) ==
LOC: LAB 10:27
PROVIDERS: ATTEND Nurse Practitioner
DX: R10.9 Unspecified abdominal pain (principal)
CPT/HCPCS: 36415; 80053; 84439; 84443; 85025